=== PATIENT | male | born 1965 | race Caucasian/White ===

== ENCOUNTER 2019-01-03 12:41 | Emergency (ER) | payer OTHER ==
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
[2019-01-03] MEDS ORDERED: HYDROCODONE/APAP 5/325 TAB PO ONE (14:27)
[2019-01-03 14:54] VITALS: BP 152/74
== END 2019-01-03 14:52 | disposition home or self-care (01) ==
DX: S42.022A Displaced fracture of shaft of left clavicle, initial encounter for closed fracture (principal); S22.42XA Multiple fractures of ribs, left side, initial encounter for closed fracture; W22.8XXA Striking against or struck by other objects, initial encounter; Y92.9 Unspecified place or not applicable; Y99.9 Unspecified external cause status; Y93.55 Activity, bike riding